=== PATIENT | female | born 1980 | race Hispanic/Latino ===

== ENCOUNTER 2024-04-06 18:13 | Emergency (ER) | payer SELFPAY ==
[~2024-04-06] VITALS: Ht 157.5 cm; Wt 74.8 kg
[2024-04-06 18:18] VITALS: BP 136/93; PULSE 93; RESP 18
[2024-04-06] MEDS: DIPH,PERTUSS(ACELL),TET VAC/PF 0.5 ML VIAL IM ONE (19:14)
[2024-04-06] MEDS ORDERED: CLIN-141 PO (19:28)
== END 2024-04-06 19:33 | disposition home or self-care (01) ==
LOC: EDH 18:13
DX: S51.811A Laceration without foreign body of right forearm, initial encounter (principal); Z79.899 Other long term (current) drug therapy; Z98.890 Other specified postprocedural states; W22.03XA Walked into furniture, initial encounter; Y93.89 Activity, other specified; Y92.89 Other specified places as the place of occurrence of the external cause; Y99.8 Other external cause status
CPT/HCPCS: 73070; 73090; 90471; 90715